=== PATIENT | male | born 1940 | race Caucasian/White ===

== ENCOUNTER → 2016-08-20 | Outpatient (CLI) | payer OTHER, MEDICARE ==
--- NOTE | 2016-08-20 11:41 | DX ---
Chest, Two Views - August 20, 2016, at 0930 hours History: Chest x-ray showing an 11-mm left lower lobe nodule that may represent a nipple shadow versu s an actual nodule. Diagnosis left lung nodule nipple shadow versus nodule. R91.1 Comparison: None available. Findings: Cardiac silhouette is within normal range. Study performed with nipple markers. There is hy perinflation of the lungs, suggesting COPD with lucencies in bilateral upper lobes. Linear increased densities in the left lower lobe, which may represent atelectasis or scarring. Atherosclerotic tortuo us aorta. No definite suspicious pulmonary nodules. No pneumonia, congestive heart failure, pleural e ffusion, or pneumothorax. Impression: 1. No definite pulmonary nodules. 2. COPD. 3. Linear subsegmental atelectasis versus scarring in the left lower lobe. 4. Atherosclerotic tortuous aorta. 5. Recommend obtaining previous studies for comparison. 6. If the patient is a high-risk patient, consider screening low-dose CT chest for further evaluation .
== END ==
LOC: BMCIMAGING 09:29
PROVIDERS: ATTEND Internal Medicine
DX: J98.4 Other disorders of lung (principal); I70.0 Atherosclerosis of aorta

== ENCOUNTER → 2016-09-04 | Outpatient (CLI) | payer OTHER, MEDICARE | LOC: BMCIMAGING 07:41 | PROVIDERS: ATTEND Internal Medicine | DX: Z03.89 Encounter for observation for other suspected diseases and conditions ruled out (principal); N28.1 Cyst of kidney, acquired ==